=== PATIENT | female | born 1980 | race Caucasian/White ===

== ENCOUNTER 2017-10-30 14:01 | Emergency (ER) | payer OTHER ==
[~2017-10-30] VITALS: Ht 180.3 cm; Wt 93.0 kg
[2017-10-30 14:08] VITALS: BP 164/90; PULSE 84; RESP 18; TEMP 97.7; O2SAT 100
[2017-10-30] MEDS ORDERED: VITA1000 PO (14:17)
[2017-10-30] MEDS ORDERED: ASPI81CH6 CHEW (14:17)
[2017-10-30] MEDS ORDERED: NEXI20CA PO (14:17)
[2017-10-30 14:22] VITALS: BP 138/75; PULSE 82; RESP 16; O2SAT 100
--- NOTE | 2017-10-30 14:41 | PD ---
HPI Chief Complaint: Chest Pain Time Seen by Provider: 14:15 Travel History International Travel<30 days: No Contact w/Intl Traveler<30days: No Traveled to known affect area: No History of Present Illness HPI 37-year-old female presents to the emergency department for evaluation of chest heaviness that started this morning. She states she was having some right upper quadrant abdominal pain for the past 2 weeks. She related it to her GERD. However, has not went away. She states at this time, she has no pain, with certain movements she will have pain. She states she has chest heaviness right now, but cannot give me a number for it. She denies exacerbating or alleviating factors. She states she feels short of breath with it. Patient denies any cardiac history. She denies any significant family history of cardiac disease. No recent stress test or cardiac catheterization. She denies any leg edema. No hemoptysis. She denies recent surgery or travel. She is on control pills. Patient states she took aspirin 81 mg this morning. Moderate severity. PFSH Past Medical History GERD: Yes ?: Not LMP: 10/05/17 Social History Alcohol Use: Yes Tobacco Use: No Substance Use: No Allergies-Medications (Allergen,Severity, Reaction): Coded Allergies: No Known Allergies (Unverified , 10/30/17) Reported Meds & Prescriptions Reported Meds & Active Scripts Active Reported Vitamin D-1000 (Cholecalciferol) 1,000 Unit Tab 1,000 Units PO DAILY Nexium (Esomeprazole DR) 20 Mg Capdr 20 Mg PO DAILY Aspirin Low Dose (Aspirin) 81 Mg Chew 81 Mg CHEW DAILY Review of Systems Except as stated in HPI: all other systems reviewed are Neg Physical Exam Narrative GENERAL: Well-nourished, well-developed female patient, ambulatory. Afebrile. SKIN: Focused skin assessment warm/dry. HEAD: Normocephalic. Atraumatic. EYES: No scleral icterus. No injection or drainage. NECK: Supple, trachea midline. No JVD or lymphadenopathy. CARDIOVASCULAR: Regular rate and rhythm without murmurs, gallops, or rubs. Bilateral radial and pedal pulses 2+. RESPIRATORY: Breath sounds equal bilaterally. No accessory muscle use. Lung sounds are clear to auscultation. GASTROINTESTINAL: Abdomen soft, non-tender, nondistended. MUSCULOSKELETAL: No cyanosis, or edema. BACK: Nontender without obvious deformity. No CVA tenderness. Data Data Last Documented VS Vital Signs Date Time Temp Pulse Resp B/P (MAP) Pulse Ox O2 Delivery O2 Flow Rate FiO2 10/30/17 14:52 16 100 Room Air 10/30/17 14:22 82 10/30/17 14:08 97.7 Orders Orders Electrocardiogram (10/30/17 14:33) Ckmb (Isoenzyme) Profile (10/30/17 14:33) Complete Blood Count With Diff (10/30/17 14:33) Comprehensive Metabolic Panel (10/30/17 14:33) D-Dimer (10/30/17 14:33) Magnesium (Mg) (10/30/17 14:33) Prothrombin Time / Inr (Pt) (10/30/17 14:33) Act Partial Throm Time (Ptt) (10/30/17 14:33) Troponin I (10/30/17 14:33) Lipase (10/30/17 14:33) Chest, Single Ap (10/30/17 14:33) Ecg Monitoring (10/30/17 14:33) Bilateral Bp Monitoring (10/30/17 14:33) Iv Access Insert/Monitor (10/30/17 14:33) Oximetry (10/30/17 14:33) Oxygen Administration (10/30/17 14:33) Urinalysis - C+S If Indicated (10/30/17 14:33) Ed Urine Pregnancytest Poc (10/30/17 14:33) Al-Mag Hy-Si 40-40-4 Mg/Ml Liq (Mag-Al P (10/30/17 14:45) Lidocaine 2% Viscous (Xylocaine 2% Visco (10/30/17 14:45) Labs Laboratory Tests Test 10/30/17 14:50 White Blood Count 11.3 TH/MM3 Red Blood Count 4.59 MIL/MM3 Hemoglobin 12.4 GM/DL Hematocrit 38.1 % Mean Corpuscular Volume 82.9 FL Mean Corpuscular Hemoglobin 27.1 PG Mean Corpuscular Hemoglobin Concent 32.7 % Red Cell Distribution Width 13.9 % Platelet Count 324 TH/MM3 Mean Platelet Volume 9.4 FL Neutrophils (%) (Auto) 61.2 % Lymphocytes (%) (Auto) 30.1 % Monocytes (%) (Auto) 5.8 % Eosinophils (%) (Auto) 2.3 % Basophils (%) (Auto) 0.6 % Neutrophils # (Auto) 6.9 TH/MM3 Lymphocytes # (Auto) 3.4 TH/MM3 Monocytes # (Auto) 0.7 TH/MM3 Eosinophils # (Auto) 0.3 TH/MM3 Basophils # (Auto) 0.1 TH/MM3 CBC Comment DIFF FINAL Differential Comment Prothrombin Time 9.8 SEC Prothromb Time International Ratio 1.0 RATIO Activated Partial Thromboplast Time 24.2 SEC D-Dimer Quantitative (PE/DVT) 0.20 MG/L FEU Urine Color COLORLESS Urine Turbidity CLEAR Urine pH 7.0 Urine Specific [place] 1.002 Urine Protein NEG mg/dL Urine Glucose (UA) NEG mg/dL Urine Ketones NEG mg/dL Urine Occult Blood NEG Urine Nitrite NEG Urine Bilirubin NEG Urine Urobilinogen LESS THAN 2.0 MG/DL Urine Leukocyte Esterase SMALL Urine RBC LESS THAN 1 /hpf Urine WBC 5 /hpf Urine Squamous Epithelial Cells 1 /hpf Urine Bacteria OCC /hpf Urine Mucus FEW /lpf Microscopic Urinalysis Comment CULT NOT INDICATED Blood Urea Nitrogen 10 MG/DL Creatinine 0.85 MG/DL Random Glucose 78 MG/DL Total Protein 7.4 GM/DL Albumin 3.6 GM/DL Calcium Level 9.5 MG/DL Magnesium Level 2.0 MG/DL Alkaline Phosphatase 62 U/L Aspartate Amino Transf (AST/SGOT) 16 U/L Alanine Aminotransferase (ALT/SGPT) 21 U/L Total Bilirubin 0.3 MG/DL Sodium Level 140 MEQ/L Potassium Level 3.9 MEQ/L Chloride Level 106 MEQ/L Carbon Dioxide Level 26.3 MEQ/L Anion Gap 8 MEQ/L Estimat Glomerular Filtration Rate 75 ML/MIN Total Creatine Kinase 40 U/L Troponin I LESS THAN 0.02 NG/ML Lipase 354 U/L MDM Medical Decision Making Medical Screen Exam Complete: Yes Emergency Medical Condition: Yes Medical Record Reviewed: Yes Interpretation(s) Last Impressions Chest X-Ray 10/30/17 1433 Signed Impressions: Service Date/Time: Monday, October 30, 2017 14:37 - CONCLUSION: 1. No acute cardiopulmonary disease. Tuan Poon MD Differential Diagnosis anxiety vs. GERD vs. chest wall pain vs. ACS vs. PE Narrative Course 37 year old female presents to the emergency department for evaluation of chest heaviness since this morning. She states she has been having abdominal pain for 2 weeks, but none at this time. Abdominal exam is benign. EKG, CBC, CMP, Lipase, CK, Troponin, Magnesium, PTT, PT/INR, d-dimer, UA, UPT are ordered and pending. Chest x-ray is ordered and pending. EKG shows SR, with PVC, no acute ST changes. CBC shows leukocytosis of 11.3. CMP is unremarkable. Lipase is 350. CK is 40. Troponin is less than 0.02. Magnesium is 2.0. Coags show no acute abnormality. D-dimer is 0.20. Chest x- ray shows no acute cardiopulmonary disease. Upon reevaluation, patient states GI cocktail improved her symptoms. Patient was given Protonix 40 mg IV. She is on Nexium at home. She states that last time she saw GI and had endoscopy. She states she will call for an appointment. She is return here for any acute worsening of symptoms. The patient was discharged in stable condition with instructions, including return instructions and follow up instructions. Diagnosis Primary Impression: Atypical chest pain Referrals: [facility] Worker Primary Care Physician Patient Instructions: Chest Pain (ED), Gastroesophageal Reflux Disease (ED), General Instructions Additional Instructions: Follow-up with your primary care physician and GI. Return to the emergency department for any acute worsening of symptoms. Med/Other Pt SpecificInfo: No Change to Meds Disposition: 01 DISCHARGE HOME Condition: Stable Donna Lee JUAN CARLOS October 30, 2017 14:41
[2017-10-30] MEDS ORDERED: LIDOCAINE VISCOUS 2% SOLN 15 ML UDC PO ONE (14:45)
[2017-10-30] MEDS ORDERED: ALUMINUM/MAGNESIUM/SIMETH 30 ML CUP PO ONE (14:45)
[2017-10-30 14:52] VITALS: RESP 16; O2SAT 100
[2017-10-30 15:10] LABS: AUTOMATED NEUTROPHIL # 6.9 TH/MM3 (1.8-7.7); BASOPHIL # 0.1 TH/MM3 (0-0.2); BASOPHIL % 0.6 % (0.0-2.0); EOSINOPHIL # 0.3 TH/MM3 (0-0.4); EOSINOPHIL % 2.3 % (0.0-4.0); HEMATOCRIT 38.1 % (35.0-46.0); HEMOGLOBIN 12.4 GM/DL (11.6-15.3); LYMPH % 30.1 % (9.0-44.0); LYMPHOCYTE # 3.4 TH/MM3 (1.0-4.8); MEAN CELL VOLUME 82.9 FL (80.0-100.0); MEAN CORPUSCULAR HEMOGLOBIN 27.1 PG (27.0-34.0); MEAN CORPUSCULAR HGB CONC 32.7 % (32.0-36.0); MEAN PLATELET VOLUME 9.4 FL (7.0-11.0); MONO % 5.8 % (0.0-8.0); MONOCYTE # 0.7 TH/MM3 (0-0.9); NEUT % 61.2 % (16.0-70.0); PLATELET COUNT 324 TH/MM3 (150-450); RED BLOOD COUNT 4.59 MIL/MM3 (4.00-5.30); RED CELL DISTRIBUTION WIDTH 13.9 % (11.6-17.2); WHITE BLOOD COUNT 11.3 TH/MM3 (4.0-11.0)
[2017-10-30 15:13] LABS: BACTERIA, URINE OCC /hpf; BILIRUBIN, URINE NEG (NEG); BLOOD, URINE NEG (NEG); GLUCOSE,URINE NEG (NEG); KETONE, URINE NEG (NEG); MUCUS URINE FEW /lpf (OCC); NITRITE,URINE NEG (NEG); SQUAMOUS EPITHELIAL CELL URINE 1 /hpf (0-5); URINE COLOR COLORLESS (YELLW/STRAW); URINE LEUKOCYTE ESTERASE SMALL (NEG)
--- NOTE | 2017-10-30 15:20 | RADRPT ---
EXAM DATE/TIME: 10/30/2017 14:37 [facility] COMPARISON: No previous studies available for comparison. INDICATIONS : Right lower lateral chest pain, denies injury MEDICAL HISTORY : None. SURGICAL HISTORY : None. ENCOUNTER: Initial ACUITY: 2 weeks PAIN SCORE: 4/10 LOCATION: Right chest FINDINGS: A single view of the chest demonstrates the lungs to be symmetrically aerated without evidence of mas s, infiltrate or effusion. The cardiomediastinal contours are unremarkable. Osseous structures are intact. CONCLUSION: 1. No acute cardiopulmonary disease. Tuan Poon MD on October 30, 2017 at 15:17 Board Certified Radiologist. This report was verified electronically.
[2017-10-30 15:25] LABS: D-DIMER 0.2 MG/L FEU (0.00-0.50); PROTHROMBIN TIME - PATIENT 9.8 SEC (9.8-11.6)
[2017-10-30 15:34] LABS: ALBUMIN 3.6 GM/DL (3.4-5.0); ALT (GPT) 21 U/L (10-53); AST (GOT) 16 U/L (15-37); BICARBONATE 26.3 MEQ/L (21.0-32.0); BLOOD UREA NITROGEN 10 MG/DL (7-18); CALCIUM 9.5 MG/DL (8.5-10.1); CHLORIDE 106 MEQ/L (98-107); CREATININE 0.85 MG/DL (0.50-1.00); GLOMERULAR FILTRATION RATE 75 ML/MIN (>89); GLUCOSE,RANDOM 78 MG/DL (74-106); SODIUM (NA) 140 MEQ/L (136-145)
[2017-10-30 15:39] LABS: ALKALINE PHOSPHATASE 62 U/L (45-117); TOTAL BILIRUBIN ADULT 0.3 MG/DL (0.2-1.0); TOTAL PROTEIN 7.4 GM/DL (6.4-8.2); TROPONIN I LESS THAN 0.02 NG/ML (0.02-0.05)
[2017-10-30] MEDS ORDERED: PANTOPRAZOLE SODIUM 40 MG VIAL IV PUSH ONE (16:45)
--- NOTE | 2017-10-30 17:43 | EKG ---
Date Performed: 10/30/2017 Time Performed: 14:38:09 PTAGE: 37 years EKG: Sinus rhythm WITH OCCASIONAL VENTRICULAR PREMATURE COMPLEXES BORDERLINE ECG NO PREVIOUS TRACING DOCTOR: Martin Champagne Interpretating Date/Time 10/30/2017 17:41:36
== END 2017-10-30 17:20 | disposition home or self-care (01) ==
LOC: NEPC 14:01
DX: R07.89 Other chest pain (principal); K21.9 Gastro-esophageal reflux disease without esophagitis; R94.31 Abnormal electrocardiogram [ECG] [EKG]; Z79.82 Long term (current) use of aspirin
CPT/HCPCS: 71045; 80053; 81001; 82550; 83690; 83735; 84484; 84703; 85025; 85379; 85610; 85730; 93005; 96374; 99285; C9113